=== PATIENT | female | born 1980 | race Caucasian/White ===

== ENCOUNTER 2016-10-02 18:40 | Emergency (ER) | payer OTHER ==
[~2016-10-02] VITALS: Ht 165.1 cm; Wt 52.0 kg
[2016-10-02 18:42] VITALS: BP 134/82
[2016-10-02] MEDS ORDERED: PLEASE ENTER ALLERGIES MC SCH ×2 (19:00)
[2016-10-02] MEDS ORDERED: DIPH,PERTUSS(ACELL),TET VAC/PF 0.5 ML IM-VACC ONE ×2 (19:00→19:08)
[2016-10-02] MEDS ORDERED: LIDOCAINE 2%, 20ML SQ ONE (19:00)
[2016-10-02] MEDS ORDERED: LIDOCAINE 1%, 20ML ONE (19:08)
[2016-10-02] MEDS ORDERED: L.E.T SOLUTION TP ONE ×2 (19:13→19:30)
== END 2016-10-02 20:39 | disposition home or self-care (01) ==
LOC: ED 20:35
DX: S81.011A Laceration without foreign body, right knee, initial encounter (principal); S81.012A Laceration without foreign body, left knee, initial encounter; S60.512A Abrasion of left hand, initial encounter; W01.0XXA Fall on same level from slipping, tripping and stumbling without subsequent striking against object, initial encounter; Y93.89 Activity, other specified; Y92.89 Other specified places as the place of occurrence of the external cause; Y99.8 Other external cause status
CPT/HCPCS: 12001; 90471; 90715